=== PATIENT | female | born 1980 | race Caucasian/White ===

== ENCOUNTER 2024-07-11 14:20 | Emergency (ER) | payer BC, SELFPAY ==
--- NOTE | ~2024-07-11 | CT_ITS ---
EXAMINATION: CT ABDOMEN AND PELVIS WITH CONTRAST CLINICAL INFORMATION: Abdominal pain. COMPARISON: None available. TECHNIQUE: Multidetector volumetric images were obtained from the superior aspect of the liver through the pubic symphysis following administration 85 mL of Omnipaque 350 intravenous contrast. Sagittal and coronal reformatted images were obtained on the technologist's workstation. Oral contrast: No This CT examination was performed using dose optimization techniques as appropriate, variously including the following: *Automated exposure control *Adjustment of mA and/or kV according to patient size (this includes techniques or standardized protocols for targeted exams where dose is matched to indication/reason for exam; i.e. extremities or head) *Use of iterative reconstruction technique DLP: 367 mGy-cm FINDINGS: LUNG BASES: 3 mm nodule left lower lobe on image 2 of series 8. LIVER, GALLBLADDER, AND BILIARY TREE: The liver is normal in size, shape, and attenuation. 9 mm hypodensity anterior liver too small to characterize. No biliary ductal dilatation is present. The gallbladder is unremarkable with no evidence of radiopaque gallstones, gallbladder wall thickening, or obvious pericholecystic inflammatory changes. PANCREAS: Fullness of the head of the pancreas. No ductal dilatation. SPLEEN: Not enlarged. ADRENAL GLANDS: No adrenal mass. KIDNEYS AND URETERS: The kidneys are symmetric in size and enhancement. Small hypodensities in the left kidney most likely on a benign basis. No hydronephrosis. No perinephric stranding. BLADDER: Unremarkable. GASTROINTESTINAL TRACT: Small and large bowel loops are of normal caliber. No small bowel obstruction. Appendix is within normal limits. ABDOMINAL WALL: No significant hernia is appreciated. LYMPH NODES: No bulky lymphadenopathy. VASCULAR: Normal caliber abdominal aorta. PELVIC VISCERA: Anteverted uterus. Involuting corpus luteum in the left ovary. Small free fluid in pelvis. OSSEOUS STRUCTURES: Degenerative disc disease at L4-L5. CT/CT abdomen pelvis w IV con IMPRESSION: Fullness of the head of the pancreas. No dilatation of the main pancreatic duct. MRI/MRCP is recommended to exclude the possibility of underlying mass. Indeterminate 9 mm hepatic lesion. 3 mm left lower lobe pulmonary nodule. Consider chest CT to exclude additional pulmonary nodules.
[2024-07-11 14:21] VITALS: BP 135/77; PULSE 84; RESP 18; TEMP 36.5; O2SAT 100; BMI 22.3
--- NOTE | 2024-07-11 14:22 | ED.GENADULT ---
HPI - General Adult General Chief complaint: Abdominal Pain Stated complaint: lower abd pain Time Seen by Provider: 07/11/24 14:35 Source: patient Mode of arrival: ambulatory Limitations: no limitations History of Present Illness ED Provider: GARRICK HPI narrative: 44 yo female no sig PMH other than prior c section here with c/o Thursday noting lower abdominal pain that progressed throughout the night and became severe on Thursday that was the peak of her pain. Since then she has experience waves of pain, nausea and had a documented fever of 101. No dysuria, diarrhea, change in stools, travel. Went to [facility] yesterday they did labs and urine that showed some blood but no imaging. Went back to urgent care as her pain and nausea persisted today and they referred her for CT scan. She has never had this before. No recent abx use either, no hx of ovarian cysts. MD complaint: abdominal pain Onset (ago): day(s) (Thursday night) Location: abdomen Radiation: back Severity: moderate Quality: aching Pain Consistency: intermittent Relieving factors: none Exacerbating factors: movement Associated symptoms: nausea/vomiting Treatments prior to arrival: none Related Data Previous Rx's ?Medication ?Instructions ?Recorded lorazepam 1 mg tablet (Ativan) 1 mg PO DAILY PRN anxiety #2 tabs 07/11/24 Allergies Allergy/AdvReac Type Severity Reaction Status Date / Time No Known Allergies Allergy Verified 07/11/24 14:27 Review of Systems Review of Systems: Constitutional : No Weight loss, pos Fever, No Chills ENT/Mouth : No sore throat, No Rhinorrhea Eyes: No Swelling, No Redness Cardiovascular : No Chest Pain, No SOB, NoEdema Respiratory : No Cough, No Sputum, No Wheezing Gastrointestinal : Positive Nausea, no Vomiting, no Diarrhea, positive abdominal Pain, No Hematochezia, No Melena Genitourinary : No Dysuria, No Urinary Frequency, No Hematuria, No Urgency Musculoskeletal : No joint pain, No Myalgias, No Joint Swelling Skin : No Skin Lesions, No rash Neuro : No Weakness, No Numbness, No Dizziness, No Headache Psych : No Anxiety/Panic, No Depression All other systems reviewed and are negative. [facility] Past Medical History Attestation statement: The following information was validated with the patient. Source: old records reviewed Medical History (Updated 07/11/24 @ 16:35 by Marilin Trinidad DO) No pertinent past medical history Surgical History Hx of section Social History Social History (Updated 07/11/24 @ 14:57 by Marilin Trinidad DO) Alcohol intake: current Alcohol intake frequency: holidays/special occasions only Patient Tobacco Use Status: Never used Tobacco Smoked in Last 30 Days: No Use of substances other than those prescribed or required for medical reasons: No Advance Directives: No Advance Directives Information Provided: No Do you have a plan to hurt others: No Plan Patient : No Physical Exam ED Vital Signs: Vital Signs - 24 hr 07/11/24 14:21 07/11/24 14:48 07/11/24 17:13 Temperature 97.7 F 98.4 F Pulse Rate 84 71 75 Respiratory Rate 18 18 18 Blood Pressure 135/77 100/71 108/74 Pulse Oximetry 100 98 100 Oxygen Delivery Method Room Air Room Air Room Air 07/11/24 17:38 Temperature 98.3 F Pulse Rate 75 Respiratory Rate 18 Blood Pressure 108/74 Pulse Oximetry 100 Oxygen Delivery Method Room Air BMI result Body Mass Index 22.3 Appearance: Alert. Oriented X3. No acute distress. Eyes: Pupils equal, round and reactive to light. ENT: Pharynx normal. Neck: Normal inspection. Neck supple. CVS: Normal heart rate and rhythm. Pulses normal. Respiratory: No respiratory distress. Breath sounds normal. Abdomen: Soft and moderate ttp in LLQ suprapubic, mild RLQ no rebound no guarding Skin: Skin warm and dry. Normal skin color. Extremities: No lower extremity edema. Neuro: Oriented X 3. No motor deficit. No sensory deficit. Course Course Course Narrative: RME performed by Geneva Noyola PA-C. Patient is a 44 year old assigned female at presenting to the emergency department with lower abdominal pain. Patient states she was seen at [facility] last night for abdominal pain, seen and told probably a kidney stone. Detailed physical exam and review of systems are deferred to the brushing machine operator. Labs and imaging ordered. Patient placed back in the waiting room pending room availability and results. Reevaluation(s) Reevaluation #1: hx of same symptoms with COVID last time Reevaluation #2: declined paxlovid Reevaluation #3: aware of CT scan does not want to wait for MRI - I did order as outpatient Medications Administered Discontinued Medications Generic Name Dose Route Start Last Admin Trade Name Andi PRN Reason Stop Dose Admin Lactated Ringer's 1,000 mls @ 999 mls/hr 07/11/24 14:44 07/11/24 16:17 Lr IV 07/11/24 15:44 Infused .Q1H1M ONE Infusion Iohexol 100 ml 07/11/24 16:05 07/11/24 16:06 Iohexol 350 Mg/Ml 100 Ml Infus..Btl IV 07/11/24 16:06 85 ml ONCE ONE Administration Ketorolac Tromethamine 15 mg 07/11/24 14:44 07/11/24 15:06 Ketorolac Tromethamine 15 Mg/Ml Vial IVPUSH 07/11/24 14:45 15 mg ONCE ONE Administration Ondansetron HCl 4 mg 07/11/24 14:44 07/11/24 15:06 Ondansetron Hcl 4 Mg/2 Ml Vial IVPUSH 07/11/24 14:45 4 mg ONCE ONE Administration Medical Decision Making Medical Decision Making MDM Narrative: 44 yo female with no sig PMH here with persistent lower abdominal pain, nausea and documented fever 101 - was told she has blood in her urine at urgent care. At this time no sig travel history, abx use, change in stools to suggest diverticulitis/colitis - no fam hx and no prior colonoscopies. Has no known ovarian cysts. At this time will obtain labs, UA, CT scan for colitis, diverticulitis, renal colic, IVF and toradol for pain Differential Diagnosis Differential Diagnoses: The differential diagnosis associated with the presentation includes colitis, diverticulitis, renal colic Admission/Observation Consideration of admission/observation: Escalation of care including admission/observation considered VS stable, no hypoxia, CT scan outpatient follow MRI scheduled tomorrow, labs show viral etiology Lab Data [facility] Lab Attestation statement: I reviewed the patient's lab results. 07/11/24 14:57 07/11/24 14:57 Labs: Lab Results 07/11/24 07/11/24 07/11/24 Range/Units 14:57 14:57 14:57 WBC 3.6 L (4.8-10.8) X10*3/uL RBC 4.19 L (4.20-5.50) X10*6/uL Hgb 12.2 (12.0-16.0) g/dl Hct 36.6 L (37.0-47.0) % MCV 87.4 (80.0-98.0) fL MCH 29.1 (27.0-33.0) pg MCHC 33.3 (31.0-35.0) g/dl RDW 12.6 (11.0-16.0) % Plt Count 298 (160-400) X10*3/uL MPV 9.1 L (9.4-12.3) fL Immature Gran % (Auto) 0.3 (0.0-0.4) % Neut % (Auto) 55.9 (45-73) % Lymph % (Auto) 30.6 (20-40) % [place] % (Auto) 11.5 H (2-11) % Eos % (Auto) 1.1 (0-4) % Baso % (Auto) 0.6 (0-2) % Lymph # (Auto) 1.1 L (1.2-4.9) X10*3/uL [place] # (Auto) 0.4 (0.1-1.2) X10*3/uL Eos # (Auto) 0.0 (0.0-0.4) X10*3/uL Baso # (Auto) 0.0 (0.0-0.2) X10*3/uL Abs Immat Gran (auto) 0.01 (0.00-0.03) X10*3/uL Absolute Neuts (auto) 2.0 (2.0-8.3) x10*3/uL Absolute Nucleated RBC 0.000 (0.0-0.012) X10*3/uL Nucleated RBC % (auto) 0.0 (0.0-0.2) /100WBC Sodium Cancelled 141 Potassium Cancelled 3.6 Chloride Cancelled Carbon Dioxide Anion Gap BUN Creatinine Estim Creat Clear Calc Estimated GFR Random Glucose Calcium Magnesium Total Bilirubin AST ALT Alkaline Phosphatase Total Protein Albumin Lipase (8-78) U/L Beta HCG, Quant Urine Color Urine Appearance Urine pH (5.0-9.0) Ur Specific [place] (1.005-1.025) Urine Protein (Neg-Trace) mg/dL Urine Glucose (UA) (Negative) mg/dL Urine Ketones (Negative) mg/dL Urine Blood (Negative) Urine Nitrite (Negative) Ur Leukocyte Esterase (Negative) Urine RBC (0-2) /HPF Urine WBC (0-5) /HPF Ur Squamous Epith Cells (0-2) /HPF Urine Bacteria (None Seen) Hyaline Casts (0-2) /LPF Influenza Type A (PCR) (Negative) Influenza Type B (PCR) (Negative) RSV RNA Qual (PCR) (Negative) SARS-CoV-2 RNA (RT-PCR) (Negative) 07/11/24 07/11/24 07/11/24 Range/Units 14:57 14:57 14:57 WBC (4.8-10.8) X10*3/uL RBC (4.20-5.50) X10*6/uL Hgb (12.0-16.0) g/dl Hct (37.0-47.0) % MCV (80.0-98.0) fL MCH (27.0-33.0) pg MCHC (31.0-35.0) g/dl RDW (11.0-16.0) % Plt Count (160-400) X10*3/uL MPV (9.4-12.3) fL Immature Gran % (Auto) (0.0-0.4) % Neut % (Auto) (45-73) % Lymph % (Auto) (20-40) % [place] % (Auto) (2-11) % Eos % (Auto) (0-4) % Baso % (Auto) (0-2) % Lymph # (Auto) (1.2-4.9) X10*3/uL [place] # (Auto) (0.1-1.2) X10*3/uL Eos # (Auto) (0.0-0.4) X10*3/uL Baso # (Auto) (0.0-0.2) X10*3/uL Abs Immat Gran (auto) (0.00-0.03) X10*3/uL Absolute Neuts (auto) (2.0-8.3) x10*3/uL Absolute Nucleated RBC (0.0-0.012) X10*3/uL Nucleated RBC % (auto) (0.0-0.2) /100WBC Sodium Potassium Chloride 105 Carbon Dioxide Cancelled 27 Anion Gap Cancelled 13 BUN Cancelled Creatinine Estim Creat Clear Calc Estimated GFR Random Glucose Calcium Magnesium Total Bilirubin AST ALT Alkaline Phosphatase Total Protein Albumin Lipase (8-78) U/L Beta HCG, Quant Urine Color Urine Appearance Urine pH (5.0-9.0) Ur Specific [place] (1.005-1.025) Urine Protein (Neg-Trace) mg/dL Urine Glucose (UA) (Negative) mg/dL Urine Ketones (Negative) mg/dL Urine Blood (Negative) Urine Nitrite (Negative) Ur Leukocyte Esterase (Negative) Urine RBC (0-2) /HPF Urine WBC (0-5) /HPF Ur Squamous Epith Cells (0-2) /HPF Urine Bacteria (None Seen) Hyaline Casts (0-2) /LPF Influenza Type A (PCR) (Negative) Influenza Type B (PCR) (Negative) RSV RNA Qual (PCR) (Negative) SARS-CoV-2 RNA (RT-PCR) (Negative) 07/11/24 07/11/24 07/11/24 Range/Units 14:57 14:57 14:57 WBC (4.8-10.8) X10*3/uL RBC (4.20-5.50) X10*6/uL Hgb (12.0-16.0) g/dl Hct (37.0-47.0) % MCV (80.0-98.0) fL MCH (27.0-33.0) pg MCHC (31.0-35.0) g/dl RDW (11.0-16.0) % Plt Count (160-400) X10*3/uL MPV (9.4-12.3) fL Immature Gran % (Auto) (0.0-0.4) % Neut % (Auto) (45-73) % Lymph % (Auto) (20-40) % [place] % (Auto) (2-11) % Eos % (Auto) (0-4) % Baso % (Auto) (0-2) % Lymph # (Auto) (1.2-4.9) X10*3/uL [place] # (Auto) (0.1-1.2) X10*3/uL Eos # (Auto) (0.0-0.4) X10*3/uL Baso # (Auto) (0.0-0.2) X10*3/uL Abs Immat Gran (auto) (0.00-0.03) X10*3/uL Absolute Neuts (auto) (2.0-8.3) x10*3/uL Absolute Nucleated RBC (0.0-0.012) X10*3/uL Nucleated RBC % (auto) (0.0-0.2) /100WBC Sodium Potassium Chloride Carbon Dioxide Anion Gap BUN 5 L Creatinine Cancelled 0.78 Estim Creat Clear Calc Cancelled 69.4 Estimated GFR Cancelled Random Glucose Calcium Magnesium Total Bilirubin AST ALT Alkaline Phosphatase Total Protein Albumin Lipase (8-78) U/L Beta HCG, Quant Urine Color Urine Appearance Urine pH (5.0-9.0) Ur Specific [place] (1.005-1.025) Urine Protein (Neg-Trace) mg/dL Urine Glucose (UA) (Negative) mg/dL Urine Ketones (Negative) mg/dL Urine Blood (Negative) Urine Nitrite (Negative) Ur Leukocyte Esterase (Negative) Urine RBC (0-2) /HPF Urine WBC (0-5) /HPF Ur Squamous Epith Cells (0-2) /HPF Urine Bacteria (None Seen) Hyaline Casts (0-2) /LPF Influenza Type A (PCR) (Negative) Influenza Type B (PCR) (Negative) RSV RNA Qual (PCR) (Negative) SARS-CoV-2 RNA (RT-PCR) (Negative) 07/11/24 07/11/24 07/11/24 Range/Units 14:57 14:57 14:57 WBC (4.8-10.8) X10*3/uL RBC (4.20-5.50) X10*6/uL Hgb (12.0-16.0) g/dl Hct (37.0-47.0) % MCV (80.0-98.0) fL MCH (27.0-33.0) pg MCHC (31.0-35.0) g/dl RDW (11.0-16.0) % Plt Count (160-400) X10*3/uL MPV (9.4-12.3) fL Immature Gran % (Auto) (0.0-0.4) % Neut % (Auto) (45-73) % Lymph % (Auto) (20-40) % [place] % (Auto) (2-11) % Eos % (Auto) (0-4) % Baso % (Auto) (0-2) % Lymph # (Auto) (1.2-4.9) X10*3/uL [place] # (Auto) (0.1-1.2) X10*3/uL Eos # (Auto) (0.0-0.4) X10*3/uL Baso # (Auto) (0.0-0.2) X10*3/uL Abs Immat Gran (auto) (0.00-0.03) X10*3/uL Absolute Neuts (auto) (2.0-8.3) x10*3/uL Absolute Nucleated RBC (0.0-0.012) X10*3/uL Nucleated RBC % (auto) (0.0-0.2) /100WBC Sodium Potassium Chloride Carbon Dioxide Anion Gap BUN Creatinine Estim Creat Clear Calc Estimated GFR > 60 Random Glucose Cancelled 102 Calcium Cancelled 9.1 Magnesium Cancelled Total Bilirubin AST ALT Alkaline Phosphatase Total Protein Albumin Lipase (8-78) U/L Beta HCG, Quant Urine Color Urine Appearance Urine pH (5.0-9.0) Ur Specific [place] (1.005-1.025) Urine Protein (Neg-Trace) mg/dL Urine Glucose (UA) (Negative) mg/dL Urine Ketones (Negative) mg/dL Urine Blood (Negative) Urine Nitrite (Negative) Ur Leukocyte Esterase (Negative) Urine RBC (0-2) /HPF Urine WBC (0-5) /HPF Ur Squamous Epith Cells (0-2) /HPF Urine Bacteria (None Seen) Hyaline Casts (0-2) /LPF Influenza Type A (PCR) (Negative) Influenza Type B (PCR) (Negative) RSV RNA Qual (PCR) (Negative) SARS-CoV-2 RNA (RT-PCR) (Negative) 07/11/24 07/11/24 07/11/24 Range/Units 14:57 14:57 14:57 WBC (4.8-10.8) X10*3/uL RBC (4.20-5.50) X10*6/uL Hgb (12.0-16.0) g/dl Hct (37.0-47.0) % MCV (80.0-98.0) fL MCH (27.0-33.0) pg MCHC (31.0-35.0) g/dl RDW (11.0-16.0) % Plt Count (160-400) X10*3/uL MPV (9.4-12.3) fL Immature Gran % (Auto) (0.0-0.4) % Neut % (Auto) (45-73) % Lymph % (Auto) (20-40) % [place] % (Auto) (2-11) % Eos % (Auto) (0-4) % Baso % (Auto) (0-2) % Lymph # (Auto) (1.2-4.9) X10*3/uL [place] # (Auto) (0.1-1.2) X10*3/uL Eos # (Auto) (0.0-0.4) X10*3/uL Baso # (Auto) (0.0-0.2) X10*3/uL Abs Immat Gran (auto) (0.00-0.03) X10*3/uL Absolute Neuts (auto) (2.0-8.3) x10*3/uL Absolute Nucleated RBC (0.0-0.012) X10*3/uL Nucleated RBC % (auto) (0.0-0.2) /100WBC Sodium Potassium Chloride Carbon Dioxide Anion Gap BUN Creatinine Estim Creat Clear Calc Estimated GFR Random Glucose Calcium Magnesium 2.1 Total Bilirubin Cancelled 0.3 AST Cancelled 15 ALT Cancelled Alkaline Phosphatase Total Protein Albumin Lipase (8-78) U/L Beta HCG, Quant Urine Color Urine Appearance Urine pH (5.0-9.0) Ur Specific [place] (1.005-1.025) Urine Protein (Neg-Trace) mg/dL Urine Glucose (UA) (Negative) mg/dL Urine Ketones (Negative) mg/dL Urine Blood (Negative) Urine Nitrite (Negative) Ur Leukocyte Esterase (Negative) Urine RBC (0-2) /HPF Urine WBC (0-5) /HPF Ur Squamous Epith Cells (0-2) /HPF Urine Bacteria (None Seen) Hyaline Casts (0-2) /LPF Influenza Type A (PCR) (Negative) Influenza Type B (PCR) (Negative) RSV RNA Qual (PCR) (Negative) SARS-CoV-2 RNA (RT-PCR) (Negative) 07/11/24 07/11/24 07/11/24 Range/Units 14:57 14:57 14:57 WBC (4.8-10.8) X10*3/uL RBC (4.20-5.50) X10*6/uL Hgb (12.0-16.0) g/dl Hct (37.0-47.0) % MCV (80.0-98.0) fL MCH (27.0-33.0) pg MCHC (31.0-35.0) g/dl RDW (11.0-16.0) % Plt Count (160-400) X10*3/uL MPV (9.4-12.3) fL Immature Gran % (Auto) (0.0-0.4) % Neut % (Auto) (45-73) % Lymph % (Auto) (20-40) % [place] % (Auto) (2-11) % Eos % (Auto) (0-4) % Baso % (Auto) (0-2) % Lymph # (Auto) (1.2-4.9) X10*3/uL [place] # (Auto) (0.1-1.2) X10*3/uL Eos # (Auto) (0.0-0.4) X10*3/uL Baso # (Auto) (0.0-0.2) X10*3/uL Abs Immat Gran (auto) (0.00-0.03) X10*3/uL Absolute Neuts (auto) (2.0-8.3) x10*3/uL Absolute Nucleated RBC (0.0-0.012) X10*3/uL Nucleated RBC % (auto) (0.0-0.2) /100WBC Sodium Potassium Chloride Carbon Dioxide Anion Gap BUN Creatinine Estim Creat Clear Calc Estimated GFR Random Glucose Calcium Magnesium Total Bilirubin AST ALT 11 Alkaline Phosphatase Cancelled 53 Total Protein Cancelled 6.9 Albumin Cancelled Lipase (8-78) U/L Beta HCG, Quant Urine Color Urine Appearance Urine pH (5.0-9.0) Ur Specific [place] (1.005-1.025) Urine Protein (Neg-Trace) mg/dL Urine Glucose (UA) (Negative) mg/dL Urine Ketones (Negative) mg/dL Urine Blood (Negative) Urine Nitrite (Negative) Ur Leukocyte Esterase (Negative) Urine RBC (0-2) /HPF Urine WBC (0-5) /HPF Ur Squamous Epith Cells (0-2) /HPF Urine Bacteria (None Seen) Hyaline Casts (0-2) /LPF Influenza Type A (PCR) (Negative) Influenza Type B (PCR) (Negative) RSV RNA Qual (PCR) (Negative) SARS-CoV-2 RNA (RT-PCR) (Negative) 07/11/24 07/11/24 07/11/24 Range/Units 14:57 14:57 15:02 WBC (4.8-10.8) X10*3/uL RBC (4.20-5.50) X10*6/uL Hgb (12.0-16.0) g/dl Hct (37.0-47.0) % MCV (80.0-98.0) fL MCH (27.0-33.0) pg MCHC (31.0-35.0) g/dl RDW (11.0-16.0) % Plt Count (160-400) X10*3/uL MPV (9.4-12.3) fL Immature Gran % (Auto) (0.0-0.4) % Neut % (Auto) (45-73) % Lymph % (Auto) (20-40) % [place] % (Auto) (2-11) % Eos % (Auto) (0-4) % Baso % (Auto) (0-2) % Lymph # (Auto) (1.2-4.9) X10*3/uL [place] # (Auto) (0.1-1.2) X10*3/uL Eos # (Auto) (0.0-0.4) X10*3/uL Baso # (Auto) (0.0-0.2) X10*3/uL Abs Immat Gran (auto) (0.00-0.03) X10*3/uL Absolute Neuts (auto) (2.0-8.3) x10*3/uL Absolute Nucleated RBC (0.0-0.012) X10*3/uL Nucleated RBC % (auto) (0.0-0.2) /100WBC Sodium Potassium Chloride Carbon Dioxide Anion Gap BUN Creatinine Estim Creat Clear Calc Estimated GFR Random Glucose Calcium Magnesium Total Bilirubin AST ALT Alkaline Phosphatase Total Protein Albumin 4.1 Lipase 45 (8-78) U/L Beta HCG, Quant Cancelled < 2 Urine Color Urine Appearance Urine pH (5.0-9.0) Ur Specific [place] (1.005-1.025) Urine Protein (Neg-Trace) mg/dL Urine Glucose (UA) (Negative) mg/dL Urine Ketones (Negative) mg/dL Urine Blood (Negative) Urine Nitrite (Negative) Ur Leukocyte Esterase (Negative) Urine RBC (0-2) /HPF Urine WBC (0-5) /HPF Ur Squamous Epith Cells (0-2) /HPF Urine Bacteria (None Seen) Hyaline Casts (0-2) /LPF Influenza Type A (PCR) NEGATIVE (Negative) Influenza Type B (PCR) NEGATIVE (Negative) RSV RNA Qual (PCR) NEGATIVE (Negative) SARS-CoV-2 RNA (RT-PCR) POSITIVE A (Negative) 07/11/24 Range/Units 15:51 WBC (4.8-10.8) X10*3/uL RBC (4.20-5.50) X10*6/uL Hgb (12.0-16.0) g/dl Hct (37.0-47.0) % MCV (80.0-98.0) fL MCH (27.0-33.0) pg MCHC (31.0-35.0) g/dl RDW (11.0-16.0) % Plt Count (160-400) X10*3/uL MPV (9.4-12.3) fL Immature Gran % (Auto) (0.0-0.4) % Neut % (Auto) (45-73) % Lymph % (Auto) (20-40) % [place] % (Auto) (2-11) % Eos % (Auto) (0-4) % Baso % (Auto) (0-2) % Lymph # (Auto) (1.2-4.9) X10*3/uL [place] # (Auto) (0.1-1.2) X10*3/uL Eos # (Auto) (0.0-0.4) X10*3/uL Baso # (Auto) (0.0-0.2) X10*3/uL Abs Immat Gran (auto) (0.00-0.03) X10*3/uL Absolute Neuts (auto) (2.0-8.3) x10*3/uL Absolute Nucleated RBC (0.0-0.012) X10*3/uL Nucleated RBC % (auto) (0.0-0.2) /100WBC Sodium Potassium Chloride Carbon Dioxide Anion Gap BUN Creatinine Estim Creat Clear Calc Estimated GFR Random Glucose Calcium Magnesium Total Bilirubin AST ALT Alkaline Phosphatase Total Protein Albumin Lipase (8-78) U/L Beta HCG, Quant Urine Color Yellow Urine Appearance Clear Urine pH 6.0 (5.0-9.0) Ur Specific [place] <= 1.005 (1.005-1.025) Urine Protein Negative (Neg-Trace) mg/dL Urine Glucose (UA) Negative (Negative) mg/dL Urine Ketones Negative (Negative) mg/dL Urine Blood Small (1+) H (Negative) Urine Nitrite Negative (Negative) Ur Leukocyte Esterase Negative (Negative) Urine RBC 0-2 (0-2) /HPF Urine WBC 0-5 (0-5) /HPF Ur Squamous Epith Cells 0-2 (0-2) /HPF Urine Bacteria None Seen (None Seen) Hyaline Casts 0-2 (0-2) /LPF Influenza Type A (PCR) (Negative) Influenza Type B (PCR) (Negative) RSV RNA Qual (PCR) (Negative) SARS-CoV-2 RNA (RT-PCR) (Negative) Independent Interpretation I performed an independent interpretation of an: CT Scan (no acute findings, incidental findings) Radiology Impression Discussion of test interpretation with radiology: I have reviewed the radiologist's reading. Prescription Management I considered prescription management with: Antiviral Discharge Plan Discharge Clinical Impression: COVID-19 Abdominal pain Qualifiers: Abdominal location: lower abdomen, unspecified Qualified Code(s): R10.30 - Lower abdominal pain, unspecified Patient Disposition: Home, Self-Care Instructions: Abdominal Pain (ED), COVID-19 (Coronavirus Disease 2019) (ED) Additional Instructions: return for any worsening symptoms or concerns oxygen level is normal labs show viral illness consistent with your diagnosis you have trace blood in your urine which could be related to viral infection but this should be monitored carefully and repeated with your doctor in 2 weeks monitor breathing - return for any worsening symptoms of chest pain, difficulty breathing, inability to walk to your own bathroom given high risk of clots with covid would take one enteric aspirin (coated) 325mg prior to plane trip and move your legs MRI ordered as outpatient tomorrow at noon arrive 1145 to register at the front entrance then go to the lab desk there is a phone for MRI. Call and they will bring you in. YOU MUST BE FASTING 4 hours BEFORE THE TEST AT 8AM nothing to eat or drink before the test CT scan of chest within 3 months given left lung nodule LIVER, GALLBLADDER, AND BILIARY TREE: The liver is normal in size, shape, and attenuation. 9 mm hypodensity anterior liver too small to characterize. No biliary ductal dilatation is present. The gallbladder is unremarkable with no evidence of radiopaque gallstones, gallbladder wall thickening, or obvious pericholecystic inflammatory changes. PANCREAS: Fullness of the head of the pancreas. No ductal dilatation. SPLEEN: Not enlarged. ADRENAL GLANDS: No adrenal mass. KIDNEYS AND URETERS: The kidneys are symmetric in size and enhancement. Small hypodensities in the left kidney most likely on a benign basis. No hydronephrosis. No perinephric stranding. BLADDER: Unremarkable. GASTROINTESTINAL TRACT: Small and large bowel loops are of normal caliber. No small bowel obstruction. Appendix is within normal limits. ABDOMINAL WALL: No significant hernia is appreciated. LYMPH NODES: No bulky lymphadenopathy. VASCULAR: Normal caliber abdominal aorta. PELVIC VISCERA: Anteverted uterus. Involuting corpus luteum in the left ovary. Small free fluid in pelvis. OSSEOUS STRUCTURES: Degenerative disc disease at L4-L5. CT/CT abdomen pelvis w IV con IMPRESSION: Fullness of the head of the pancreas. No dilatation of the main pancreatic duct. MRI/MRCP is recommended to exclude the possibility of underlying mass. Indeterminate 9 mm hepatic lesion. 3 mm left lower lobe pulmonary nodule. Consider chest CT to exclude additional pulmonary nodules. Prescriptions: New lorazepam [Ativan] 1 mg tablet 1 mg PO DAILY PRN (Reason: anxiety) Qty: 2 0RF Rx Instructions: can take one prior to procedure Interventions: ED Discharge Assessment Last Done: 07/11/24 17:38 Discharge Date/Time: 07/11/24 17:39 Print Language: Nepali
[2024-07-11 14:48] VITALS: BP 100/71; PULSE 71; RESP 18; TEMP 36.9; O2SAT 98
[2024-07-11 15:06] LABS: MANUAL DIFF FLAG NO
[2024-07-11] MEDS: Lactated Ringers 1,000 ML 999 ML IV (15:06)
[2024-07-11] MEDS: Ketorolac Tromethamine 15 MG/ML VIAL IVPUSH (15:06)
[2024-07-11] MEDS: ondansetron HCL 4 MG/2 ML VIAL IVPUSH (15:06)
--- NOTE | 2024-07-11 15:08 | PC.NURSE ---
a&ox4. vss and up to date. pt presents to the ED w/ intermittent lower pelvic pain radiating to left flank x thursday. pt reports having episodes of nausea/fever/PRASAD yesterday but denies any episodes of vomiting/diarrhea. pt seen at urgent care/woo to be assessed. states she had blood work/urine obtained but did receive any imaging. pt also reports urinary frequency but denies any other urinary sx. pt reports increase in water intake so she thinks that the urinary frequency is because of that. 20gIV placed in the right AC - medication/IVF administered per provider order. effectiveness pending. pt seems to be resting in no apparent distress. no sob/wob noted. respirations even/unlabored. pt seen by ED provider/aware of plan of care moving forward. plan of care ongoing. call olmos placed within reach.
[2024-07-11 15:13] LABS: Basophils Percent Auto 0.6 % (0-2); Eosinophils Percent Auto 1.1 % (0-4); Hematocrit 36.6 % (37.0-47.0); Hemoglobin 12.2 g/dl (12.0-16.0); Imm Gran Abs Auto 0.01 X10*3/uL (0.00-0.03); Imm Gran Pct Auto 0.3 % (0.0-0.4); Lymphocytes Absolute Auto 1.1 X10*3/uL (1.2-4.9); Lymphocytes Percent Auto 30.6 % (20-40); Mean Corpuscular HGB Conc 33.3 g/dl (31.0-35.0); Mean Corpuscular Hemoglobin 29.1 pg (27.0-33.0); Mean Corpuscular Volume 87.4 fL (80.0-98.0); Mean Platelet Volume 9.1 fL (9.4-12.3); Monocytes Absolute Auto 0.4 X10*3/uL (0.1-1.2); Monocytes Percent Auto 11.5 % (2-11); Neutrophils Percent Auto 55.9 % (45-73); Platelet Count 298 X10*3/uL (160-400); Red Blood Count 4.19 X10*6/uL (4.20-5.50); Red Cell Distribution Width 12.6 % (11.0-16.0); White Blood Count 3.6 X10*3/uL (4.8-10.8)
[2024-07-11 15:38] LABS: Alanine Aminotransferase 11 U/L (0-31); Albumin Level 4.1 g/dL (3.5-5.0); Alkaline Phosphatase 53 U/L (39-117); Anion Gap 13 (12-20); Aspartate Amino Transferase 15 U/L (5-31); Bilirubin Total 0.3 mg/dL (0.0-1.0); Blood Urea Nitrogen 5 mg/dL (9-16); Calcium 9.1 mg/dL (8.4-10.2); Carbon Dioxide 27 mmol/L (22-29); Chloride 105 mmol/L (96-108); Creatinine Clr Calc Pharmacy 69.4; Estimated Glomerular Filt Rate > 60; Glucose Random 102 mg/dL (60-115); Lipase 45 U/L (8-78); Magnesium 2.1 mg/dL (1.6-2.6); Potassium 3.6 mmol/L (3.3-5.1); Sodium 141 mmol/L (135-145); Total Protein 6.9 g/dL (6.5-8.0)
[2024-07-11 15:39] LABS: HCG Quantitative < 2 mIU/mL
[2024-07-11 15:49] LABS: Influenza A PCR NEGATIVE (Negative); Influenza B PCR NEGATIVE (Negative); Resp Syncy Virus RNA Qual PCR NEGATIVE (Negative); SARS COV2 PCR INHOUSE POSITIVE (Negative)
--- NOTE | 2024-07-11 15:52 | PC.NURSE ---
urine obtained/sent to lab. pt to CT at this time.
[2024-07-11] MEDS: iohexoL 350 MG/ML 100 ML INFUS..BTL IV (16:06)
[2024-07-11 16:09] LABS: Appearance Urine Clear; Color Urine Yellow; Glucose Urine UA Negative (Negative); Leukocyte Esterase Urine Negative (Negative); Nitrite Urine Negative (Negative); Specific Gravity - Urine <= 1.005 (1.005-1.025); UMIC TRIGGER UACC YES; Urine Blood Small (1+) (Negative); Urine Ketones Negative (Negative); Urine Protein Negative (Neg-Trace)
--- OUTSIDE RECORDS SUMMARY | 2024-07-11 16:17 | XMS_ITS | Continuity of Care Document ---
Author Organization [facility] Address [address] [facility] [place] [address]- Care Team Providers Care Pharmacy Clinical Specialist Name Role Phone Pawel BLACKMAN, Esther Foley Primary Care Physician Encounter 06/09/23 - 06/16/23 [facility] [address] [facility], [address] [place] [address]- Attending Physician: Rosa Bennett NP Admitting Physician: Rosa Bennett NP Referring Physician: Rosa Bennett NP Allergies, Adverse Reactions, Alerts No Known Allergies Immunizations Given and Recorded Vaccine Date Status Refusal Reason influenza virus vaccine, inactivated 09/29/17 Jvaier rded influenza virus vaccine, inactivated 08/31/16 Javier rded influenza virus vaccine, inactivated 1 10/04/15 Gi michelle tetanus/diphtheria/pertussis, acel(Tdap) 01/26/14 Recorded tetanus/diphtheria/pertussis, acel(Tdap) 07/30/10 Given Hepatitis A Adult Vaccine 2 07/30/10 Given 1Admin Note: patient information sheet given 2Admin Note: hep A #1 Medications Multivitamin Daily, 0 Refills, Maintenance, 08/22/21 9:11:00 EDT, Partial fill upon patient request if the prescription is for a schedule II opioid drug. Start Date: 08/22/21 Status: Ordered Problem List Condition Confirmation Course Effective Dates Status Health St atus Informant Anxiety Confirmed Active delivery delivered x2 Confirmed Active False uterine contractions at 21.3 wk 1 Confirmed Active Hx of acne Confirmed Active Dermatitis Confirmed Active Panic attack Confirmed Active Primiparous Confirmed Active Rosacea Confirmed Active 1Terb x 1 Results Radiology Reports * Exam Date Time Procedure Performing Provider Status 06/09/23 4:13 PM US Breast Right Limited Jade Sanches ie; Auth (Verified) Notes: (US Breast Right Limited) Reason For Exam: RT ABNORMAL MAMMO RESULT: US Breast Right Limited PROCEDURE: MM Digital Mammo Unilat Right, US Breast Right Limited INDICATION: Callback from the examination of 05/28/2023. TECHNIQUE: 3 diagnostic mammographic images with 3-D tomography. Targeted right breast ultrasound. FINDINGS: The asymmetry persists on spot CC image 31/58 as a 4 mm rounded abnormality. I cannot identify it on the MLO view. It is probably obscured by fibroglandular tissue. There is a corresponding abnormality on lateral image 36/66, located above the level of nipple and 4.5 cm from the nipple. Ultrasound examination was performed over a wide area which could correspond to the mammographic finding. A solitary simple cyst of 4 mm in diameter is noted in the 1:00 position 2 cm from the nipple. This is felt to account for the mammographic finding. IMPRESSION: 1. There is a persistent small rounded mammographic abnormality on today's mammographic images. 2. On ultrasound it is shown to be a simple cyst of no significance. 3. Bilateral mammography recommended at routine yearly intervals. RECOMMENDATION: Annual mammographic screening BI-RADS: 2 (Benign) Lay letter mailed to patient WSN: [id number] Ordering Physician: Rosa Bennett Dictated By: Chris Hickey MD Dictated Date/Time: 06/09/23 4:19 pm Reviewed By: Chris Hickey MD Signed By: Chris Hickey MD Signed Date/Time: 06/09/23 4:19 pm Transcribed By: VIKAS Transcribed Date/Time: 06/09/23 4:01 pm * Exam Date Time Procedure Performing Provider Status 06/09/23 3:46 PM MM Digital Mammo Unilat Right Tory Ashford; Auth (Verified) Notes: (MM Digital Mammo Unilat Right) Reason For Exam: RT ABNORMAL MAMMO RESULT: MM Digital Mammo Unilat Right PROCEDURE: MM Digital Mammo Unilat Right, US Breast Right Limited INDICATION: Callback from the examination of 05/28/2023. TECHNIQUE: 3 diagnostic mammographic images with 3-D tomography. Targeted right breast ultrasound. FINDINGS: The asymmetry persists on spot CC image 31/58 as a 4 mm rounded abnormality. I cannot identify it on the MLO view. It is probably obscured by fibroglandular tissue. There is a corresponding abnormality on lateral image 36/66, located above the level of nipple and 4.5 cm from the nipple. Ultrasound examination was performed over a wide area which could correspond to the mammographic finding. A solitary simple cyst of 4 mm in diameter is noted in the 1:00 position 2 cm from the nipple. This is felt to account for the mammographic finding. IMPRESSION: 1. There is a persistent small rounded mammographic abnormality on today's mammographic images. 2. On ultrasound it is shown to be a simple cyst of no significance. 3. Bilateral mammography recommended at routine yearly intervals. RECOMMENDATION: Annual mammographic screening BI-RADS: 2 (Benign) Lay letter mailed to patient WSN: [id number] Ordering Physician: Rosa Bennett Dictated By: Chris Hickey MD Dictated Date/Time: 06/09/23 4:19 pm Reviewed By: Chris Hickey MD Signed By: Chris Hickey MD Signed Date/Time: 06/09/23 4:19 pm Transcribed By: VIKAS Apprenticeship Representative Date/Time: 06/09/23 4:01 pm Birads: Social History Social History Type Response Smoking Status Former smoker, quit more than 30 days ago; Other: in college socially, never a regular smoker; entered on: 08/22/21 Sex Patient Care team information Care Team Personnel Name: Esther Armas NP Position: S PCO Associate Professional Member Role: PCP Address: Address: [address] [place] [address]- [place] Care Team Related Persons Name: STEFAIN HEBERT Address: home [address] [place] [address]
--- OUTSIDE RECORDS SUMMARY | 2024-07-11 16:17 | XMS_ITS | Continuity of Care Document ---
Author Organization [facility] Address [address] [place] [address]- Care Team Providers Care Application Architect Name Role Phone Pawel BLACKMAN, Esther Foley Primary Care Physician Encounter [facility] Date(s): 03/10/22 - 04/09/22 [facility] [address] [place], [place] [address] Attending Physician: Sherry Rodriguez Admitting Physician: Sherry Rodriguez Referring Physician: AdmtrSherry Allergies, Adverse Reactions, Alerts No Known Allergies Immunizations Given and Recorded Vaccine Date Status Refusal Reason influenza virus vaccine, inactivated 09/29/17 Javier rded influenza virus vaccine, inactivated 08/31/16 Javier rded influenza virus vaccine, inactivated 1 10/04/15 Gi michelle tetanus/diphtheria/pertussis, acel(Tdap) 01/26/14 Recorded tetanus/diphtheria/pertussis, acel(Tdap) 07/30/10 Given Hepatitis A Adult Vaccine 2 07/30/10 Given 1Admin Note: patient information sheet given 2Admin Note: hep A #1 Problem List Condition Effective Dates Status Health Status Inform ant Anxiety(Confirmed) Active delivery delivered x2(Confirmed) Active False uterine contractions a t 21.3 wk(Confirmed) 1 Active Hx of acne(Confirmed) Active Dermatitis(Confirmed) Active Panic attack(Confirmed) Active Primiparous(Confirmed) Active Rosacea(Confirmed) Active 1Terb x 1 Social History Social History Type Response Smoking Status Former smoker, quit more than 30 days ago; Other: in college socially, never a regular smoker; entered on: 08/22/21 Sex
--- OUTSIDE RECORDS SUMMARY | 2024-07-11 16:17 | XMS_ITS | Continuity of Care Document ---
Author Organization [facility] Address [address] [place] [address]- Care Team Providers Care Director Of Math Name Role Phone Leti TAVERAS, Duarte Sanders Primary Care Physician [phone] [place] [facility] [place] 08/17/20 - 08/18/[address] [address]- [facility] Attending Physician: Pawel BLACKMAN, Esther Lopez Allergies, Adverse Reactions, Alerts Substance Reaction Severity Status NKA Active Immunizations Given and Recorded Vaccine Date Status Refusal Reason influenza virus vaccine, inactivated 1 10/04/15 Gi michelle tetanus/diphtheria/pertussis, acel(Tdap) 07/30/10 Given Hepatitis A Adult Vaccine 2 07/30/10 Given 1Admin Note: patient information sheet given 2Admin Note: hep A #1 Problem List Condition Effective Dates Status Health Status Inform ant False uterine contractions a t 21.3 wk(Confirmed) 1 Active Primiparous(Confirmed) Active 1Terb x 1 Social History Social History Type Response Smoking Status Never (less than 100 in lifetime) entered on: 10/03/19 Sex
--- OUTSIDE RECORDS SUMMARY | 2024-07-11 16:17 | XMS_ITS | Continuity of Care Document ---
Author Organization [facility] Address [address] [place] [address]- Care Team Providers Care Database Programmer Name Role Phone Pawel BLACKMAN, Esther Foley Primary Care Physician [place] [facility] [place]s): 04/07/24 - 04/14/24 [facility] [address] [place], [place] [address] Encounter Diagnosis Irritation of eyelid(Discharge Diagnosis) - 04/07/24 Attending Physician: Renetta Hunter MD Referring Physician: Esther Armas NP Allergies, Adverse Reactions, Alerts No Known [...] opioid drug. Start Date: 08/22/21 Status: Ordered Spironolactone By Mouth, 0 Refills, Maintenance, 04/07/24 9:12:00 EDT, Partial fill upon patient request if the prescription is for a schedule II opioid drug. Start Date: 04/07/24 Status: Ordered Problem List Condition Confirmation Course Effective Dates Status Health St atus Informant Anxiety Confirmed Active delivery delivered x2 Confirmed Active False uterine contractions at 21.3 wk 1 Confirmed Active Hx of acne Confirmed Active Dermatitis Confirmed Active Panic attack Confirmed Active Primiparous Confirmed Active Rosacea Confirmed Active 1Terb x 1 Diagnosis Diagnosis Type Effective Dates Health Status Clinical Service Informant Irritation of eyelid Discharge Diagnosis 04/07/24 Vital Signs Most recent to oldest [Reference Range]: 1 Height 157 cm (04/07/24 9:12 AM) Oxygen Saturation [94-100 %] 100 % (04/07/24 9:12 AM) Pulse Rate [55-90 bpm] 64 bpm (04/07/24 9:12 AM) Blood Pressure [90-138/55-84 mm Hg] 109/ 72mm Hg (04/07/24 9:12 AM) Respiratory Rate [16-30 br/min] 18 br/mi n (04/07/24 9:12 AM) Temperature [96.8-100.4 DegF] 97.9 DegF (04/07/24 9:12 AM) Mode of Delivery (Oxygen) Room air (04/07/24 9:12 AM) Blood pressure sites Arm, left (04/07/24 9:12 AM) Temperature Route Temporal (04/07/24 9:12 AM) Social History Social History Type Response Smoking Status Former smoker, quit more than 30 days ago; Other: in college socially, never a regular smoker; entered on: 08/22/21 Sex Note * Akanksha Hughes: PERFORM Event Display: Patient Education/Instruction Authored Date: Ambulatory Adult Visit Summary [facility] [address] [address] Name: SERENITY HEBERT : 1980?? Visit: 04/07/2024 08:48?? Ambulatory Visit Instructions ?? Your Care Team Primary Care Provider Pawel BLACKMAN, Esther Foley? This Visit Provider [facility] [place] Your Diagnosis Irritation of eyelid Vitals Signs Temperature: 97.9 DegF Height: 157 cm Pulse Rate: 64 bpm ?? Respiratory Rate: 18 br/min ?? Systolic Blood Pressure: 109 mm Hg ?? Diastolic Blood Pressure: 72 mm Hg ?? Oxygen Saturation: 100 % ?? Medications The list below reflects the information in our records and provided by you today along with any changes made during this visit. Please continue your medications until treatment is completed or stopped by your provider. If this is different from the information you have or there are other questions,please contact the prescribing provider. What How Much When Why Instructions New Amoxicillin-Clavulanate (Augmentin 875 mg-125 mg oral tablet) 1 tab(s) Oral Every 12 hours Irritation of eyelid Duration: 7 Days Pickup at [facility]/pharmacy #0447 New Polymyxin B-Trimethoprim Ophthalmic (polymyxin B-trimethoprim ophthalmic 29637 u-1 mg/ ml solution) See instructions Irritation of eyelid 2 drops right eye 4 times a day for 7 days ?? Pickup at [facility]/pharmacy #0447 Unchanged Multivitamin Daily Unchanged Spironolactone Oral Pharmacy Information [facility]/pharmacy #0447: [address] [place], [place] [phone] Medications and Immunizations Administered Medications Given During Visit No medications given during this visit.?? Allergies (NKA means No Known Allergies) NKA Common Emergency Awareness Tips IS IT A STROKE? Act FAST and Check for these signs: FACE Does the face look uneven? ARM Does one arm drift down? SPEECH Does their speech sound strange? TIME Call at any sign of stroke ?? Heart Attack Signs Chest discomfort: Most heart attacks involve discomfort in the center of the chest and lasts more than a few minutes, or goes away and comes back. It can feel like uncomfortable pressure, squeezing, fullness or pain. Discomfort in upper body: Symptoms can include pain or discomfort in one or both arms, back, neck, jaw or stomach. Shortness of breath: With or without discomfort. Other signs: Breaking out in a cold sweat, nausea, or lightheaded. Remember, MINUTES DO MATTER. If you experience any of these heart attack warning signs, call to get immediate medical attention! ?? Smoking can increase your chances of developing chronic health problems and can cause harmful effects to other family members in your house. If you smoke, you are strongly encouraged to quit. Please call [facility] [facility] at [phone] or [phone] ([phone]) or log in to [email or web address] for referrals to smoking cessation programs. ?? The National Suicide Prevention Hotline is available 22/06 if you or someone you know needs to find a reason to keep living. By calling 9-441-598-ibww (8113) you'll be connected to a skilled, trained counselor at a crisis center in your area. [facility] Portal You can view and manage your care through the patient portal or by using a health care marlen of your choosing. [employer] is a website that allows you to securely view your medical information including your hospital discharge summary, office visit summaries, medications and follow-up visits. You can also request appointments, renew medications, and request access to your medical information using a health care marlen of your choosing, or just ask a question. You can enroll at [email or web address] or register during your next office visit. [facility], in keeping with [facility] guidance, no longer requires face masks for staff, patientsor visitors in most situations. Similiar to time spent indoors at other locations, there is the chance that you were exposed to repiratory viruses during your time with us (such as flu or COVID-19). If you develop symptoms concerning for a viral respiratory infection, please seek testing (and treatment if indicated) from your medical provider or home test kit. ?? Disclaimer: The information provided is of a general nature and is intended to be used in conjunction with the recommendations and advice of your health care practitioner. Every effort has been made to ensure that the information provided is accurate and complete at the time it is provided to you however, as your needs change, or, as new information becomes available, different or additional instructions may be required. ?? If you have questions, please consult with your primary care provider or pharmacist, as appropriate. This information is not intended to serve as substitution for assessment and evaluation by a qualified health care provider. If you do not have a primary care provider, you may find a [facility] provider by calling [facility] at [phone]. Patient Care team information Care Team Personnel Name: Esther Armas NP Position: [facility] PCO Associate Professional Member Role: PCP Address: Address: [address] [place] [address]- Care Team Related Persons Name: SHADILaloSTEFANI Address: [address] [place] [address]
--- OUTSIDE RECORDS SUMMARY | 2024-07-11 16:17 | XMS_ITS | Continuity of Care Document ---
Author Organization [facility] Address [address] [facility] [place] [address]- Care Team Providers Care Sole Inker Name Role Phone Leti TAVERAS, Duarte Sanders Primary Care Physician [phone] Encounter 05/15/21 - 05/22/21 [facility] [address] [facility], [address] [place], [place] [address] Attending Physician: Pawel BLACKMAN, Esther Foley Admitting Physician: Pawel BLACKMAN, Esther Foley Referring Physician: Pawel BLACKMAN, Esther Foley Allergies, Adverse Reactions, Alerts Substance Reaction Severity [...]
--- OUTSIDE RECORDS SUMMARY | 2024-07-11 16:17 | XMS_ITS | Continuity of Care Document ---
Author Organization [facility] Address [address] [facility] [place] [address]- Care Team Providers Care Metal Welder Name Role Phone Pawel BLACKMAN, Esther Foley Primary Care Physician Encounter 05/27/22 - 06/03/22 [facility] [address] [facility] [facility], [address] [place], [place] [address] Attending Physician: Aldair Downey MD Admitting Physician: Aldair Downey MD Referring Physician: Aldair Downey MD Allergies, Adverse Reactions, Alerts No Known Allergies [...]
--- OUTSIDE RECORDS SUMMARY | 2024-07-11 16:17 | XMS_ITS | Continuity of Care Document ---
Author Organization [facility] Address [address] [facility] [place] [address]- Care Team Providers Care Metal Hanger Name Role Phone Pawel BLACKMAN, Esther Foley Primary Care Physician Encounter 05/28/23 - 06/04/23 [facility] [address] [facility], [address] [place], [place] [address] Attending Physician: Rosa Bennett NP Admitting Physician: [...] Exam Date Time Procedure Performing Provider Status 05/28/23 8:44 AM MM Digital Mammo Screening [place] , Apri l; Auth (Verified) Notes: (MM Digital Mammo Screening) Reason For Exam: Z12.31 SCREENING RESULT: MM Digital Mammo Screening PROCEDURE: MM Digital Mammo Screening INDICATION: Screening for breast cancer. No known palpable abnormalities. COMPARISON: Multiple priors, most recently 05/27/2022. TECHNIQUE: Full-field digital CC and MLO 3D tomosynthesis images of both breasts were acquired. Computer-aided detection (CAD) was utilized in the interpretation of this study. DENSITY: The breast tissue is heterogeneously dense, which may obscure masses. FINDINGS: There is a focal asymmetry in the central anterior/mid right breast, additional imaging with spot compression views in the craniocaudad and mediolateral oblique projections as well as an ultrasound are needed. No other suspicious masses, suspicious microcalcifications, or areas of architectural distortion are seen in either breast to suggest malignancy. IMPRESSION: Right breast focal asymmetry for which additional imaging is needed. No mammographic evidence of malignancy in the left breast. RECOMMENDATION: Diagnostic 3D tomosynthesis of the right breast with scheduled ultrasound BI-RADS: 0 (Incomplete - Need Additional Imaging Evaluation. Lay letter mailed to patient I have personally reviewed the images and I agree with this report. WSN: [id number] Ordering Physician: Rosa Bennett Dictated By: Angel Marroquin DO Dictated Date/Time: 05/28/23 2:10 pm Reviewed By: Laurie Moran MD Signed By: Laurie Moran MD Signed Date/Time: 05/28/23 2:15 pm Transcribed By: VIKAS System Support Administrator Date/Time: 05/28/23 11:21 am Birads: Social History Social History Type Response Smoking Status Former smoker, quit more than 30 days ago; Other: in college socially, never a regular smoker; entered on: 08/22/21 Sex Patient Care team information Care Team Personnel Name: Esther Armas NP Position: S PCO Associate Professional Member Role: PCP Address: Address: [address] [place] [address]- Care Team Related Persons Name: STEFANI HEBERT Address: home [address] [place] [address]
--- OUTSIDE RECORDS SUMMARY | 2024-07-11 16:17 | XMS_ITS | Continuity of Care Document ---
Author Organization [facility] Address [address] [facility] [place] [address]- Care Team Providers Care Hotbed Transfer Operator Name Role Phone Pawel BLACKMAN, Esther Foley Primary Care Physician Encounter 05/30/24 - 06/06/24 [facility] [address] [facility], [address] [place], [place] [address] Attending Physician: Maksim Shipley MD Admitting Physician: Maksim Shipley MD Referring Physician: Maksim Shipley MD Allergies, Adverse Reactions, Alerts No Known [...] Exam Date Time Procedure Performing Provider Status 05/30/24 1:48 PM MM Digital Mammo Screening Damián Flores; Casey (Verified) Notes: (MM Digital Mammo Screening) Reason For Exam: Z12.31 SCREENING RESULT: MM Digital Mammo Screening PROCEDURE: MM Digital Mammo Screening INDICATION: Screening for breast cancer. No known palpable abnormalities. COMPARISON: Multiple prior comparison studies, most recent on 06/09/2023 and 05/28/2023 TECHNIQUE: Full-field digital CC and MLO 3D tomosynthesis images of both breasts were acquired. Computer-aided detection (CAD) was utilized in the interpretation of this study. DENSITY: The breast tissue is heterogeneously dense, which may obscure small masses. FINDINGS: No suspicious masses, suspicious microcalcifications, or areas of architectural distortion are seen in either breast to suggest malignancy. IMPRESSION: No mammographic evidence of malignancy. RECOMMENDATION: Annual mammographic screening BI-RADS: 1 (Negative) Lay letter mailed to patient WSN: [id number] Ordering Physician: Maksim Shipley Dictated By: Laurie Moran MD Dictated Date/Time: 05/31/24 8:14 am Reviewed By: Laurie Moran MD Signed By: Laurie Moran MD Signed Date/Time: 05/31/24 8:14 am Transcribed By: VIKAS Vice President Of Recruiting Date/Time: 05/31/24 8:05 am Birads: Social History Social History Type Response Smoking Status Former smoker, quit more than 30 days ago; Other: in college socially, never a regular smoker; entered on: 08/22/21 Sex Patient Care team information Care Team Personnel Name: Pawel BLACKMAN, Esther Foley Position: [facility] PCO Associate Professional Member Role: PCP Address: Address: [address] [place] [address]- Care Team Related Persons Name: STEFANI HEBERT Address: [address] [place] [address]
--- OUTSIDE RECORDS SUMMARY | 2024-07-11 16:17 | XMS_ITS | Continuity of Care Document ---
Author Organization [facility] Address [address] [place] [address]- Care Team Providers Care Supervisor [employer] Name Role Phone Pawel BLACKMAN, Esther Foley Primary Care Physician Encounter [facility] Date(s): 03/10/22 - 03/17/22 [facility] [address] [place] [address]- Encounter Diagnosis Pleurisy(Discharge Diagnosis) - 03/10/22 Attending Physician: Dl Heredia Allergies, Adverse Reactions, Alerts No Known Allergies [...] given 2Admin Note: hep A #1 Medications No Known Medications Problem List Condition Effective Dates Status Health Status Inform ant Anxiety(Confirmed) Active delivery delivered x2(Confirmed) Active False uterine contractions a t 21.3 wk(Confirmed) 1 Active Hx of acne(Confirmed) Active Dermatitis(Confirmed) Active Panic attack(Confirmed) Active Primiparous(Confirmed) Active Rosacea(Confirmed) Active 1Terb x 1 Diagnosis Diagnosis Type Effective Dates Health Status Clini [facility] Service Informant Pleurisy Discharge Diagnosis 03/10/22 Vital Signs Most recent to oldest [Reference Range]: 1 Height 157 cm (03/10/22 9:20 AM) Oxygen Saturation [94-100 %] 100 % (03/10/22 9:20 AM) Pulse Rate [55-90 bpm] 70 bpm (03/10/22 9:20 AM) Blood Pressure [90-138/55-84 mm Hg] 108/ 72mm Hg (03/10/22 9:20 AM) Respiratory Rate [16-30 br/min] 16 br/mi n (03/10/22 9:20 AM) Temperature [96.8-100.4 DegF] 99.1 DegF (03/10/22 9:20 AM) Mode of Delivery (Oxygen) Room air (03/10/22 9:20 AM) Blood pressure sites Arm, left (03/10/22 9:20 AM) Temperature Route Temporal (03/10/22 9:20 AM) Social History Social History Type Response Smoking Status Former smoker, quit more than 30 days ago; Other: in college socially, never a regular smoker; entered on: 08/22/21 Sex
--- OUTSIDE RECORDS SUMMARY | 2024-07-11 16:17 | XMS_ITS | Continuity of Care Document ---
Author Organization [facility] ter Address [address] [place] [id number]- Care Team Providers Care Cigar Bander Name Role Phone Pawel BLACKMAN, Esther Foley Primary Care Physician [place] [facility] [place] - 08/23/[address] [address] Attending Physician: Esther Armas NP Allergies, Adverse Reactions, Alerts Substance Reaction Severity [...]
--- OUTSIDE RECORDS SUMMARY | 2024-07-11 16:17 | XMS_ITS | Continuity of Care Document ---
Author Organization [facility] Address [address] [place] [address]- Care Team Providers Care Customer Sales Distributor Name Role Phone Pawel BLACKMAN, Esther Foley Primary Care Physician Encounter [facility] Date(s): 04/07/24 - 05/07/24 [facility] [address] [place], [place] [address] Attending Physician: Sherry Rodriguez Admitting Physician: AdmSherry gary Referring Physician: AdmtrSherry Allergies, Adverse Reactions, Alerts [...] Active Rosacea Confirmed Active 1Terb x 1 Social History Social History Type Response Smoking Status Former smoker, quit more than 30 days ago; Other: in college socially, never a regular smoker; entered on: 08/22/21 Sex EKG study * Event Display: EKG Authored Date: Patient Care team information Care Team Personnel Name: Esther Armas NP Position: S PCO Associate Professional Member Role: PCP Address: Address: [address] [place] [address]- Care Team Related Persons Name: STEFANI HEBERT Address: [address] [place] [address]
[2024-07-11 16:41] LABS: Bacteria Urine None Seen (None Seen); Hyaline Casts Urine 0-2 /LPF (0-2); RBC Urine 0-2 /HPF (0-2); Squamous Epithelial Cell Urine 0-2 /HPF (0-2); WBC Urine 0-5 /HPF (0-5)
[2024-07-11 17:13] VITALS: BP 108/74; PULSE 75; RESP 18; O2SAT 100
[2024-07-11 17:38] VITALS: BP 108/74; PULSE 75; RESP 18; TEMP 36.8; O2SAT 100
== END 2024-07-11 17:39 | disposition home or self-care (01) ==
PROVIDERS: Physician Assistant Medical; Emergency Provider Emergency Medicine; PCP Internal Medicine
DX: U07.1 COVID-19 (principal); R10.30 Lower abdominal pain, unspecified; R11.2 Nausea with vomiting, unspecified; R10.2 Pelvic and perineal pain; Z79.899 Other long term (current) drug therapy
CPT/HCPCS: 0241U; 36415; 74177; 80053; 81001; 81003; 83690; 83735; 84702; 85025; 96361; 96374; 96375; 99284; 99285; J1885; J2405; J7120; Q9967

== ENCOUNTER 2024-07-12 11:37 | Outpatient (REF) | payer BC, SELFPAY ==
--- NOTE | ~2024-07-12 | MR_ITS ---
EXAMINATION: MR ABDOMEN WITHOUT CONTRAST, MRCP CLINICAL INFORMATION: Abdominal pain. Abnormal CT abdomen. COMPARISON: CT abdomen/pelvis 07/11/2024. TECHNIQUE: MR abdomen is performed without gadolinium contrast. 3D MRCP images were processed on an independent workstation under concurrent supervision. FINDINGS: LUNG BASES: The visualized lung bases are clear. There is a 1 cm well-defined, T2 hyperintense simple-appearing cyst in the right breast (8:4), that is, however, incompletely characterized in the absence of intravenous contrast. LIVER, GALLBLADDER, AND BILIARY TREE: The liver is normal in size, signal and morphology. Stable size of a 1 cm well-defined T2 hyperintense nonaggressive-appearing lesion in the inferior right hepatic lobe (8:30) most likely representing a cyst or hemangioma, although incompletely characterized in the absence of intravenous contrast. PANCREAS: Homogeneous signal intensity. No pancreatic lesion. No main duct or dilatation. No peripancreatic inflammatory changes. Question the presence of a pancreatic divisum anatomy with the main dorsal duct draining separately into the minor papilla (series 7 images 15 and 14), although evaluation is limited by motion. SPLEEN: Unremarkable. ADRENAL GLANDS: Unremarkable. KIDNEYS AND URETERS: The kidneys are normal in size and shape. No hydronephrosis. No perinephric stranding. There are 2 macroscopic fat-containing lesions in the lower pole of the left kidney with Damaris ink artifact measuring 2.1 x 2 cm and 1.5 x 1.1 cm (8:33) most consistent with angiomyolipomas. GASTROINTESTINAL TRACT: No evidence of bowel obstruction or ascites. ABDOMINAL WALL: No significant hernia is appreciated. LYMPH NODES: No lymphadenopathy. VASCULAR: Limited noncontrast examination. Normal caliber of the abdominal aorta. OSSEOUS STRUCTURES: No acute or aggressive-appearing osseous findings. MR/MR abdomen wo con IMPRESSION: 1. No acute abnormality in the abdomen. Normal appearance of the pancreas. Possibly incidentally noted pancreatic divisum anatomic variation. 2. Left-sided renal angiomyolipomas. 3. A 1 cm well-defined T2 hyperintense lesion in the inferior right hepatic lobe most likely representing a cyst or hemangioma, although incompletely characterized in the absence of intravenous contrast. 4. A 1 cm well-defined T2 hyperintense simple-appearing cyst in the right breast, most likely benign although incompletely characterized in the absence of intravenous contrast. Recommend correlation with dedicated outpatient breast images. Electronically signed by: Berta Motley MD 07/24/2024 08:50 AM EDT RP
== END 2024-07-12 11:38 | disposition home or self-care (01) ==
LOC: HO.MRI 11:37
PROVIDERS: PCP Internal Medicine; Visit Provider Emergency Medicine
DX: R10.84 Generalized abdominal pain (principal)
CPT/HCPCS: 74181